=== PATIENT | female | born 1990 | race African-American/Black ===

== ENCOUNTER 2019-05-24 21:52 | Inpatient (IN) | payer MEDICAID ==
[~2019-05-24] VITALS: Ht 162.6 cm; Wt 61.4 kg
[~2019-05-24 21:52] MED LIST: DOXY1TAB3 PO; MISOPROSTOL 200 MCG TABLET ONE; PREN-59 PO
[2019-05-24 21:59] VITALS: BP 138/83
[2019-05-24] MEDS ORDERED: LIDOCAINE 1%, 20ML ONE (22:19)
[2019-05-24] MEDS ORDERED: LACTATED RINGERS 1,000 ML IV SCH (22:23)
[2019-05-24] MEDS ORDERED: OXYTOCIN 30U/ 0.9% NaCL 500ML 500 ML IV ONE (22:23)
[2019-05-24] MEDS ORDERED: FENTANYL PF 100 MCG/2ML ONE (22:25)
[2019-05-24] MEDS ORDERED: MISOPROSTOL 200 MCG TABLET PR ONE (22:30)
[2019-05-24] MEDS ORDERED: TERBUTALINE 1 MG/ML, 1ML IVPush PRN (22:30)
[2019-05-24] MEDS ORDERED: TERBUTALINE 1 MG/ML, 1ML SQ PRN (22:30)
[2019-05-24] MEDS ORDERED: FENTANYL PF 100 MCG/2ML IVPush PRN (22:30)
[2019-05-24] MEDS ORDERED: ACETAMINOPHEN 325 MG TABLET PO PRN (23:00)
[2019-05-24] MEDS: OXYTOCIN 30U/ 0.9% NaCL 500ML 500 ML IV SCH (23:00)
[2019-05-24] MEDS ORDERED: SIMETHICONE 80 MG CHEW TAB PO PRN (23:00)
[2019-05-24] MEDS ORDERED: ONDANSETRON 2MG/ML, 2ML IV PRN (23:00)
[2019-05-24] MEDS ORDERED: METHYLERGONOVINE 0.2 MG/ML IM PRN (23:00)
[2019-05-24] MEDS ORDERED: OXYTOCIN 10 UNITS/ML, 1ML IM PRN (23:00)
[2019-05-24] MEDS ORDERED: HYDROcodone/APAP 5/325 TABLET PO PRN (23:00)
[2019-05-24] MEDS ORDERED: CARBOPROST TROMETHAMINE 250 MCG/ML, 1ML IM PRN (23:00)
[2019-05-24] MEDS ORDERED: MISOPROSTOL 200 MCG TABLET PR PRN (23:00)
[2019-05-24] MEDS ORDERED: OXYTOCIN 30U/ 0.9% NaCL 500ML 500 ML ONE (23:07)
[2019-05-25] MEDS ORDERED: ONDANSETRON 2MG/ML, 2ML ONE (00:21)
[2019-05-25 01:00] VITALS: BP 126/83
[2019-05-25] MEDS: IBUPROFEN 600 MG TABLET PO PRN ×3 (01:16→20:07)
[2019-05-25] MEDS: HYDROcodone/APAP 5/325 TABLET PO PRN ×4 (01:22→20:08)
[2019-05-25 04:00] VITALS: BP 134/87
[2019-05-25 06:40] LABS: BASOPHILS # (AUTO) 0.03 x10^3/uL (0-0.1); BASOPHILS % (AUTO) 0 % (0-1); EOSINOPHILS % (AUTO) 0 % (1-7); LYMPHOCYTES # (AUTO) 1.01 x10^3/uL (1-3.4); LYMPHOCYTES % (AUTO) 9 % (22-44); MD NO; MEAN CORPUSCULAR HEMOGLOBIN 29.6 pg (27.0-34.8); MEAN CORPUSCULAR HGB CONC 32.2 g/dL (32.4-35.8); MEAN PLATELET VOLUME 8.9 fL (7.4-10.4); MONOCYTES # (AUTO) 0.87 x10^3/uL (0.2-0.8); MONOCYTES % (AUTO) 8 % (2-9); NEUTROPHILS # (AUTO) 8.96 x10^3/uL (1.8-6.8); NEUTROPHILS % (AUTO) 82 % (42-75); PLATELET COUNT 159 x10^3/uL (130-400); RED BLOOD COUNT 3.69 x10^6/uL (3.82-5.3); RED CELL DISTRIBUTION WIDTH 12.2 % (9.6-15.2)
[2019-05-25 08:25] VITALS: BP 125/74
[2019-05-25] MEDS: DOCUSATE 100 MG CAPSULE PO PRN ×2 (08:42→20:07)
[2019-05-25] MEDS: PRENATAL VIT/IRON/FA 1 EACH TABLET PO SCH (08:42)
[2019-05-25] MEDS ORDERED: RHOGAM FROM BLOOD BANK 1 NOTE EA IM/IV ONE (11:30)
[2019-05-25] MEDS: OXYTOCIN 30U/ 0.9% NaCL 500ML 500 ML IV SCH ×2 (12:08→19:07)
[2019-05-25 12:30] VITALS: BP 118/85
[2019-05-25] MEDS ORDERED: IBUP-1222 PO (14:44)
[2019-05-25] MEDS ORDERED: SENN-52 PO (14:45)
[2019-05-25] MEDS ORDERED: HYDR-3240 PO (14:46)
[2019-05-25] MEDS ORDERED: DIPH,PERTUSS(ACELL),TET VAC/PF NC IM-VACC ONE (17:00)
[2019-05-25 17:52] VITALS: BP 123/84
[2019-05-25 20:10] VITALS: BP 119/78
[2019-05-26] MEDS: IBUPROFEN 600 MG TABLET PO PRN ×2 (03:19→14:06)
[2019-05-26] MEDS: HYDROcodone/APAP 5/325 TABLET PO PRN ×3 (03:19→18:14)
[2019-05-26] MEDS: OXYTOCIN 30U/ 0.9% NaCL 500ML 500 ML IV SCH (04:39)
[2019-05-26 09:00] VITALS: BP 123/89
[2019-05-26] MEDS: PRENATAL VIT/IRON/FA 1 EACH TABLET PO SCH (09:00)
[2019-05-26] MEDS: DOCUSATE 100 MG CAPSULE PO PRN (18:14)
== END 2019-05-26 18:20 | disposition home or self-care (01) | DRG 806 ==
LOC: LDIP 21:52 → 2NW 05-25 00:30
PROVIDERS: ADMIT Obstetrics & Gynecology; ATTEND Obstetrics & Gynecology
PROC: 10E0XZZ Delivery of Products of Conception, External Approach (ICD-10-PCS; principal; 2019-05-24)
PROC: 0HQ9XZZ Repair Perineum Skin, External Approach (ICD-10-PCS; 2019-05-24)
PROC: 0UQMXZZ Repair Vulva, External Approach (ICD-10-PCS; 2019-05-24)
PROC: 3E0P7VZ Introduction of Hormone into Female Reproductive, Via Natural or Artificial Opening (ICD-10-PCS; 2019-05-24)
DX: O99.344 Other mental disorders complicating childbirth (principal); O99.324 Drug use complicating childbirth; Z37.0 Single live birth; Z3A.41 41 weeks gestation of pregnancy; F41.8 Other specified anxiety disorders; F12.90 Cannabis use, unspecified, uncomplicated; O70.0 First degree perineal laceration during delivery; O71.82 Other specified trauma to perineum and vulva; O73.0 Retained placenta without hemorrhage
CPT/HCPCS: 36415; 59414; 85025; 85461; 86850; 86900; 90715; G0378; J2405; J2790; J3010; J2590; J7120

== ENCOUNTER 2020-03-12 20:34 | Emergency (ER) | payer MEDICAID ==
[~2020-03-12] VITALS: Ht 162.6 cm; Wt 49.0 kg
[~2020-03-12 20:34] MED LIST changes: +HYDR-3240 PO; +IBUP-1222 PO; -MISOPROSTOL 200 MCG TABLET ONE; +SENN-52 PO
[2020-03-12 20:46] VITALS: BP 109/66
[2020-03-12] MEDS ORDERED: ONDANSETRON 2MG/ML, 2ML IVPush ONE (21:30)
[2020-03-12] MEDS ORDERED: SODIUM CHLORIDE FLUSH 10ML SYR IVF ONE (21:30)
[2020-03-12] MEDS ORDERED: SODIUM CHLORIDE 0.9% 1,000ML IVBOLUS ONE ×2 (21:30→22:30)
[2020-03-12] MEDS ORDERED: METOCLOPRAMIDE 5 MG/ML, 2ML ONE (21:43)
[2020-03-12 21:51] LABS: BASOPHILS # (AUTO) 0.04 x10^3/uL (0-0.1); BASOPHILS % (AUTO) 1 % (0-1); EOSINOPHILS # (AUTO) 0.03 x10^3/uL (0-0.4); EOSINOPHILS % (AUTO) 0 % (1-7); LYMPHOCYTES # (AUTO) 1.98 x10^3/uL (1-3.4); LYMPHOCYTES % (AUTO) 30 % (22-44); MD NO; MEAN CORPUSCULAR HEMOGLOBIN 29.7 pg (27.0-34.8); MEAN CORPUSCULAR HGB CONC 32.6 g/dL (32.4-35.8); MEAN CORPUSCULAR VOLUME 91.2 fL (80-100); MEAN PLATELET VOLUME 8.4 fL (7.4-10.4); MONOCYTES # (AUTO) 0.48 x10^3/uL (0.2-0.8); MONOCYTES % (AUTO) 7 % (2-9); NEUTROPHILS # (AUTO) 4.08 x10^3/uL (1.8-6.8); NEUTROPHILS % (AUTO) 62 % (42-75); PLATELET COUNT 239 x10^3/uL (130-400); RED BLOOD COUNT 4.67 x10^6/uL (3.82-5.3); RED CELL DISTRIBUTION WIDTH 12.1 % (9.6-15.2)
[2020-03-12 21:58] LABS: ALANINE AMINOTRANSFERASE 36 U/L (12-78); ALBUMIN 4.5 g/dL (3.4-5.0); ANION GAP 7 mmol/L (5-15); CHLORIDE 105 mmol/L (98-107); CREATININE 1.06 mg/dL (0.55-1.02)
[2020-03-12] MEDS ORDERED: METOCLOPRAMIDE 5 MG/ML, 2ML IVPush ONE (22:00)
[2020-03-12 22:03] LABS: ALKALINE PHOSPHATASE 84 U/L (45-117); BILIRUBIN,TOTAL 2.4 mg/dL (0.2-1.0); TOTAL PROTEIN 7.9 g/dL (6.4-8.2)
[2020-03-12 22:43] LABS: HCG UR SG 1.027 (1.003-1.030)
[2020-03-12 22:49] LABS: MICROSCOPIC INDICATED
[2020-03-12] MEDS ORDERED: POTASSIUM CHLORIDE 20 MEQ TAB.ER.PRT PO ONE (23:00)
[2020-03-12] MEDS ORDERED: POTASSIUM CHLORIDE 20 MEQ TAB.ER.PRT ONE (23:53)
== END 2020-03-13 00:01 | disposition home or self-care (01) ==
LOC: ED 22:43
DX: K85.00 Idiopathic acute pancreatitis without necrosis or infection (principal); R11.2 Nausea with vomiting, unspecified
CPT/HCPCS: 36415; 80053; 81001; 81025; 83690; 84703; 85025; 87086; 96361; 96374; 99283; J2765; J7030

== ENCOUNTER 2021-02-05 20:00 | Emergency (ER) | payer MEDICAID ==
[~2021-02-05] VITALS: Ht 162.6 cm; Wt 50.9 kg
[~2021-02-05 20:00] MED LIST changes: +HYDR-2214 PO; -HYDR-3240 PO
[2021-02-05] MEDS ORDERED: ONDANSETRON 2MG/ML, 2ML IVPush ONE (21:30)
[2021-02-05] MEDS ORDERED: DIPHENHYDRAMINE 50 MG/ML, 1ML IVPush ONE (21:30)
[2021-02-05] MEDS ORDERED: DIPHENHYDRAMINE 50 MG/ML, 1ML ONE (21:32)
[2021-02-05] MEDS ORDERED: ONDANSETRON 2MG/ML, 2ML ONE (21:32)
--- NOTE | 2021-02-05 21:39 | NUR ---
PT REPORTS SHE IS 12 WEEKS AND HAS HAD N/V. VS STABLE NO ACUTE DISTRESS NOTED. CALL LIGHT IN PLACE. WILL CONTINUE TO MONITOR.
--- NOTE | 2021-02-05 21:40 | NUR ---
PT WENT TO US
[2021-02-05 21:59] LABS: ALANINE AMINOTRANSFERASE 23 U/L (12-78); ALBUMIN 3.9 g/dL (3.4-5.0); ANION GAP 9 mmol/L (5-15); CALCIUM 9.3 mg/dL (8.5-10.1); CHLORIDE 109 mmol/L (98-107)
[2021-02-05 22:02] LABS: ALKALINE PHOSPHATASE 63 U/L (45-117); BASOPHILS % (AUTO) 0 % (0-1); BILIRUBIN,TOTAL 1.8 mg/dL (0.2-1.0); CREATININE 0.64 mg/dL (0.55-1.02); EOSINOPHILS % (AUTO) 0 % (1-7); LYMPHOCYTES % (AUTO) 6 % (22-44); MEAN CORPUSCULAR HEMOGLOBIN 30.3 pg (27.0-34.8); MEAN CORPUSCULAR HGB CONC 34.2 g/dL (32.4-35.8); MEAN PLATELET VOLUME 8.8 fL (7.4-10.4); MONOCYTES % (AUTO) 1 % (2-9); NEUTROPHILS % (AUTO) 93 % (42-75); PLATELET COUNT 236 x10^3/uL (130-400); RED BLOOD COUNT 4.15 x10^6/uL (3.82-5.3); RED CELL DISTRIBUTION WIDTH 12.3 % (9.6-15.2)
--- NOTE | 2021-02-05 22:26 | NUR ---
PT AMBULATED TO BATHROOM, UA CUP GIVEN.
[2021-02-05 22:53] LABS: MICROSCOPIC INDICATED
[2021-02-05] MEDS ORDERED: SODIUM CHLORIDE 0.9% 1,000ML IVBOLUS ONE (23:00)
[2021-02-05] MEDS ORDERED: PROMETHAZINE 25 MG/ML, 1ML IM ONE (23:30)
[2021-02-05] MEDS ORDERED: PROMETHAZINE 25 MG/ML, 1ML ONE (23:31)
--- NOTE | 2021-02-05 23:34 | NUR ---
PT VOMITING, PT SEEN BY DR OLIVO. VS STABLE. CALL LIGHT IN PLACE. WILL CONTINUE TO MONITOR.
--- NOTE | 2021-02-06 00:18 | NUR ---
DR OLIVO HAS UPDATED PATIENT.
[2021-02-06 00:27] VITALS: BP 125/63
[2021-02-06] MEDS ORDERED: MUPIROCIN OINT 2%, 22GM TP SCH (06:00)
== END 2021-02-06 00:40 | disposition home or self-care (01) ==
LOC: ED 22:00
DX: O21.0 Mild hyperemesis gravidarum (principal); R10.30 Lower abdominal pain, unspecified; E86.9 Volume depletion, unspecified; Z3A.13 13 weeks gestation of pregnancy
CPT/HCPCS: 36415; 76801; 80053; 81001; 83690; 84702; 85025; 87086; 96361; 96372; 96374; 96375; 99285; J1200; J2405; J2550; J7030